=== PATIENT | female | born 1980 | race Caucasian/White ===

== ENCOUNTER 2017-01-05 03:43 | Emergency (ER) | payer SELFPAY ==
--- NOTE | 2017-01-05 04:16 | PDOC ---
Gen Adult / Medical Screen HPI - General Chief Complaint: General Medical Stated Complaint: POSSIBLY SOMETHING IN VAGINA Date Seen by Provider: 01/05/17 Time Seen by Provider: 04:11 Source: POSITIVE: Patient, Police Exam Limitations: POSITIVE: No limitations Nurse's Notes Reviewed & Considered: Yes - Indicators Temperature Between 95 and 101 Degrees: Yes Respirations Between 12 and 20: Yes Blood Pressure Between 100-165 (sys) and 60-100 (villegas): Yes Pulse Range Between 60-105 (100 for age > 60 years): Yes Severe Pain (Greater than 5/10 Reported): No Chest or Abdominal Pain: No Inability to Walk: No Pt Reports Active High Risk Cond. (TB/Hepatitis/HIV/Chemo): No Abnormal Mental Status: No - History of Present Illness Initial Comments: Patient was brought in by [employer] for a vaginal examination secondary to foreign object in her vagina. Patient stated there was a bag of heroin in her vagina and just prior to my entering the room to examine her she removed a bag of black tar heroin. She denies any symptoms. Body Location Affected: REPORTS: Genitalia Timing: REPORTS: Unknown Duration: Unknown Similar Symptoms Previously: No Recent Care Received: REPORTS: Denies Any Prior Injuries Related to Current Complaint?: No ROS - Limitations ROS Limitations: No Limitations Constitution: REPORTS: Denies Symptoms Cardiovascular: REPORTS: Denies Cardiac Symptoms Respiratory: REPORTS: Denies Resp Symptoms Neurological: REPORTS: Denies Neuro Symptoms Gastrointestinal: REPORTS: Denies GI Symptoms Endocrine: REPORTS: Denies Symptoms Musculoskeletal: REPORTS: Denies MS Symptoms Genitourinary: REPORTS: Denies Symptoms Eyes: REPORTS: Denies Symptoms ENT: REPORTS: Denies Symptoms Skin: REPORTS: Denies Skin Symptoms Lympathic: REPORTS: Denies Lympathic Symptoms Immunologic: POSITIVE: Denies Symptoms Psychiatric: POSITIVE: Denies Psych Symptoms Gen Adult/Medical Screen Exam - General Appearance General Appearance: POSITIVE: Alert, Cooperative, No Acute Distress, No Evidence of Trauma - Abdomen Additional Abdominal Details: Vaginal examination using a speculum shows no foreign objects present in her vagina. Cervix was identified and is closed. No abnormalities were identified on visual observation. Procedures - Laceration/Wound Repair Did patient have a laceration repair: No Gen Adlt/Medical Scrn Progress - Patient's Progress Pain Medication Addressed: POSITIVE: Not Applicable Status: POSITIVE: Improved MDM / ED Course: Patient was examined vaginally no foreign objects were noted. Assessment: Body packing of black tar heroin in baggy contained in her vagina. Plan: Discharge to police custody - Consult Counseled: POSITIVE: Patient, RE: DX Patient Care Time - Estimated PCT Patient Care Time (In Minutes): 5 Vital Signs - VS Reviewed Vital Signs Reviewed: Yes Discharge Clinical Impression: Foreign body in vagina Discharge Disposition: Discharged to Custody of Law Enforcement Condition: Stable Patient Instructions Given at Discharge: Vaginal Foreign Body (ED) Date Decision to Transfer to Another Facility: 01/05/17 Time Decision to Transfer to Another Facility: 04:17
[2017-01-05] MEDS ORDERED: SODIUM CL 0.9% FOR INH 3 ML NEB NEB ONE (04:28)
[2017-01-05 05:32] VITALS: RESP 16; TEMP 97.5
== END 2017-01-05 04:40 ==
LOC: ER 03:43
DX: T19.2XXA Foreign body in vulva and vagina, initial encounter (principal)
CPT/HCPCS: 99282